=== PATIENT | male | born 2000 | race Caucasian/White ===

== ENCOUNTER 2023-12-11 09:07 | Emergency (ER) | payer OTHER ==
[~2023-12-11] VITALS: Ht 188 cm; Wt 113.8 kg
[2023-12-11] MEDS ORDERED: MUPI2OIN2 TOP (12:02)
[2023-12-11] MEDS ORDERED: NABU-72 PO (12:02)
[2023-12-11 13:00] VITALS: BP 150/74; PULSE 74; RESP 19; TEMP 98; O2SAT 97
== END 2023-12-11 14:26 | disposition home or self-care (01) ==
LOC: ER 09:07
DX: S70.02XA Contusion of left hip, initial encounter (principal); S30.810A Abrasion of lower back and pelvis, initial encounter; W18.09XA Striking against other object with subsequent fall, initial encounter; Y93.89 Activity, other specified; Y92.69 Other specified industrial and construction area as the place of occurrence of the external cause; Y99.8 Other external cause status
CPT/HCPCS: 72100; 73502

== ENCOUNTER 2025-06-15 12:23 | Emergency (ER) | payer OTHER ==
[~2025-06-15] VITALS: Ht 188 cm; Wt 103.5 kg
[~2025-06-15 12:23] MED LIST: MUPI2OIN2 TOP; NABU-72 PO
[2025-06-15] MEDS: KETOROLAC TROMETH 60MG/2ML VIAL IM ONE (13:13)
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
[2025-06-15] MEDS ORDERED: METH-1182 PO (13:47)
[2025-06-15] MEDS ORDERED: IBUP-1456 PO (13:47)
[2025-06-15 13:52] VITALS: BP 126/95; PULSE 102; RESP 18; TEMP 98.1; O2SAT 98
== END 2025-06-15 13:53 | disposition home or self-care (01) ==
LOC: ER 12:23
DX: S93.601A Unspecified sprain of right foot, initial encounter (principal); S93.602A Unspecified sprain of left foot, initial encounter; S39.012A Strain of muscle, fascia and tendon of lower back, initial encounter; M54.2 Cervicalgia; Z79.899 Other long term (current) drug therapy; Z79.1 Long term (current) use of non-steroidal anti-inflammatories (NSAID); V29.99XA Rider (driver) (passenger) of other motorcycle injured in unspecified traffic accident, initial encounter; Y93.89 Activity, other specified; Y92.488 Other paved roadways as the place of occurrence of the external cause; Y99.8 Other external cause status
CPT/HCPCS: 70450; 72040; 72100; 73620; 96372; 99285; J1885